=== PATIENT | male | born 1950 | race Two or more races ===

== ENCOUNTER 2023-06-16 10:51 | Outpatient (RCR) | payer MEDICARE, BC, SELFPAY | END 2023-06-16 23:59 | disposition home or self-care (01) | LOC: RPT 10:51 | PROVIDERS: ATTENDING PHYSICIAN Student in an Organized Health Care Education/Training Program; FAMILY PHYSICIAN Internal Medicine Geriatric Medicine | DX: Z47.89 Encounter for other orthopedic aftercare (principal); Z73.6 Limitation of activities due to disability; M25.511 Pain in right shoulder; M62.81 Muscle weakness (generalized) | CPT/HCPCS: 97010; 97110; 97140; 97162 ==

== ENCOUNTER 2023-07-14 10:15 | Outpatient (RCR) | payer MEDICARE, BC, SELFPAY | END 2023-07-14 23:59 | disposition home or self-care (01) | LOC: RPT 10:15 | PROVIDERS: ATTENDING PHYSICIAN Student in an Organized Health Care Education/Training Program; FAMILY PHYSICIAN Internal Medicine Geriatric Medicine | DX: M25.511 Pain in right shoulder (principal); Z98.890 Other specified postprocedural states; Z73.6 Limitation of activities due to disability | CPT/HCPCS: 97010; 97110; 97140 ==

== ENCOUNTER 2023-07-24 09:52 | Outpatient (RCR) | payer MEDICARE, BC, SELFPAY | END 2023-07-24 23:59 | disposition home or self-care (01) | LOC: RPT 09:52 | PROVIDERS: ATTENDING PHYSICIAN Student in an Organized Health Care Education/Training Program; FAMILY PHYSICIAN Internal Medicine Geriatric Medicine | DX: Z47.89 Encounter for other orthopedic aftercare (principal); Z73.6 Limitation of activities due to disability; M25.511 Pain in right shoulder | CPT/HCPCS: 97010; 97110; 97140 ==

== ENCOUNTER 2023-09-07 09:59 | Outpatient (RCR) | payer MEDICARE, BC, SELFPAY | END 2023-09-07 23:59 | disposition home or self-care (01) | LOC: RPT 09:59 | PROVIDERS: ATTENDING PHYSICIAN Student in an Organized Health Care Education/Training Program; FAMILY PHYSICIAN Internal Medicine Geriatric Medicine | DX: Z47.89 Encounter for other orthopedic aftercare (principal); Z98.890 Other specified postprocedural states; Z73.6 Limitation of activities due to disability | CPT/HCPCS: 97010; 97110 ==

== ENCOUNTER 2023-09-29 10:59 | Outpatient (RCR) | payer MEDICARE, BC, SELFPAY | END 2023-09-29 13:55 | disposition home or self-care (01) | LOC: RPT 10:59 | PROVIDERS: ATTENDING PHYSICIAN Student in an Organized Health Care Education/Training Program; FAMILY PHYSICIAN Internal Medicine Geriatric Medicine | DX: Z47.89 Encounter for other orthopedic aftercare (principal); Z98.890 Other specified postprocedural states; Z73.6 Limitation of activities due to disability | CPT/HCPCS: 97010; 97110 ==

== ENCOUNTER 2023-10-12 11:23 | Emergency (ER) | payer MEDICARE, BC, SELFPAY ==
[2023-10-12 11:29] VITALS: BP 123/72
--- NOTE | 2023-10-12 12:08 | ED.GENMED ---
History of Present Illness
General
Chief Complaint: Skin Problem
Source: patient
Time Seen by Provider: 10/12/23 11:52
Travel History
Have you had any contact with someone who has COVID-19?: No
Do you have any symptoms of coronavirus? Fever > 100 degrees, chills, cough, shortness of breath, sore throat, loss of taste or smell, muscle aches, or headache?: No
History of Present Illness
History of Present Illness:
73-year-old male with past medical history of hypertension, diabetes and liver cirrhosis presents to the emergency department for evaluation of suspected adverse reaction to Keflex noting that he was diagnosed with a left-sided face abscess at
[facility] urgent care and was prescribed Keflex and Bactroban. About 3 hours after taking his first dose of Keflex yesterday afternoon started to notice epigastric pain which lasted until 2:30 AM. Patient was unable to follow-up at the
urgent care today and was unable to see his primary care physician and came to the emergency department in hopes of getting his antibiotic changed. He had not previously been on Keflex in the past. Presently denying any other symptoms.
Past History
Past History
ED Past Medical History: HTN, Hypercholesterolemia and NIDDM
ED Past Surgical History: Orthopedic
Social History
Tobacco: Non-smoker
Alcohol: Occasional
Drug: None
Personal:
Living: with family
Review of Systems
Review of Systems
All Other Systems: ROS reviewed and negative except as documented in HPI and ROS
Phy Exam
Physical Exam
Physical Exam:
GENERAL: Alert , in no apparent distress
EYE: conjunctiva clear
Head: Normocephalic atraumatic
NECK: Supple,
ENT: mmm.
LUNGS: no acute respiratory distress
NEUROLOGICAL: Alert and oriented
SKIN: Warm and dry, Small circular area of erythema that is very mildly indurated just above the left eyebrow.
MUSCULOSKELETAL: well perfused.
PSYCH: Normal and appropriate interaction.
Scores
Heart Failure Risk
Heart Failure Risk Score: Not Applicable
Heart Score for Chest Pain Patients
STEMI patient?: Not applicable
Withdrawal Assessment of Alcohol
Withdrawal Assessment Completed?: Not applicable
Course
Vital Signs
Initial and Last Documented VS:
Initial Vital Signs
Temp Pulse Resp BP Pulse Ox
98.1 F 78 18 123/72 98
10/12/23 11:29 10/12/23 11:29 10/12/23 11:29 10/12/23 11:29 10/12/23 11:29
Last Documented Vital Signs
Temp Pulse Resp BP Pulse Ox
98.1 F 78 18 123/72 98
10/12/23 11:29 10/12/23 11:29 10/12/23 11:29 10/12/23 11:29 10/12/23 11:29
MDM/Problems Addressed
Differential Diagnosis Includes:
Medication reaction, GERD, gastritis
MDM/Problems Addressed:
73-year-old male presenting the emergency department for evaluation and requesting medication change after being started on Keflex and Bactroban for suspected abscess yesterday. Patient presently is asymptomatic and in no acute distress. Discussed
risk first benefit of other antibiotics and given that patient states his symptoms seem to be already improving he would like to just continue with the topical medication in hopes to avoid any further adverse reactions. Patient was advised on
return precautions emergency department and is otherwise stable for discharge home.
*Pulse Oximetry
Patient hypoxic: no
*Critical Care Note
Total Time (30-74mins, 75-104mins- exclusive of procedures): Not Applicable
ED Attending Note
-
Portions of this chart may have been created with voice recognition software.� Occasional wrong word or��sound alike� substitutions may have occurred due to the inherent limitations of voice recognition software.
Discharge Plan
Departure
Patient Disposition: Home (Routine Discharge)
Date of Disposition: 10/12/23
Time of Disposition: 12:08
Patient with high blood pressure during this ER visit?: No
Discharge Problem:
Medication side effect
Instructions: Cellulitis (Skin Infection), Adult (DC)
Prescriptions:
No Action
Coq10
100 mg PO DAILY
Crestor:
10 mg PO DAILY
Pepcid:
10 mg PO DAILY
Super B Maxi Complex Caplet
1 tab PO DAILY
Synjardy 5-1,000 mg Tablet
1 tab PO BID
Valsartan
1 tab PO DAILY
Patient Comments:
Vitamin D3:
1,000 unit PO DAILY
Referrals:
Abrahan Veloz MD [Family Provider] -
Interventions
Interventions:
*Risk Screen - Suicide Last Done: 10/12/23 12:00
*General Assessment Last Done: 10/12/23 12:00
*Neglect/Abuse Screening Last Done: 10/12/23 12:00
*Nursing Disposition Last Done: 10/12/23 12:23
Discharge Date and Time
Discharge Date/Time: 10/12/23 12:24
Print Language: [id number]
== END 2023-10-12 12:24 | disposition home or self-care (01) ==
LOC: EMR 11:23
PROVIDERS: EMERGENCY PHYSICIAN Student in an Organized Health Care Education/Training Program; FAMILY PHYSICIAN Internal Medicine Geriatric Medicine
DX: R10.13 Epigastric pain (principal); T36.95XA Adverse effect of unspecified systemic antibiotic, initial encounter; Y92.9 Unspecified place or not applicable; I10 Essential (primary) hypertension; E78.00 Pure hypercholesterolemia, unspecified; E11.9 Type 2 diabetes mellitus without complications; K74.60 Unspecified cirrhosis of liver
CPT/HCPCS: 99282

== ENCOUNTER → 2023-11-13 07:50 | Outpatient (REF) | payer MEDICARE, BC, SELFPAY | LOC: HWRCS 07:50 | PROVIDERS: ATTENDING PHYSICIAN Internal Medicine Geriatric Medicine | DX: I35.0 Nonrheumatic aortic (valve) stenosis (principal) | CPT/HCPCS: 93306 ==

== ENCOUNTER → 2024-03-21 20:37 | Outpatient (REF) | payer MEDICARE, BC, SELFPAY | LOC: MRI 3T 20:37 | PROVIDERS: ATTENDING PHYSICIAN Orthopaedic Surgery; FAMILY PHYSICIAN Internal Medicine Geriatric Medicine | DX: M25.552 Pain in left hip (principal) | CPT/HCPCS: 72148 ==

== ENCOUNTER 2024-04-13 08:56 | Outpatient (RCR) | payer MEDICARE, BC, SELFPAY | END 2024-04-13 23:59 | disposition home or self-care (01) | LOC: RPT 08:56 | PROVIDERS: ATTENDING PHYSICIAN Pain Medicine Interventional Pain Medicine; FAMILY PHYSICIAN Internal Medicine Geriatric Medicine | DX: M54.16 Radiculopathy, lumbar region (principal); Z73.6 Limitation of activities due to disability | CPT/HCPCS: 97110; 97162 ==

== ENCOUNTER 2024-04-29 09:07 | Outpatient (RCR) | payer MEDICARE, BC, SELFPAY | END 2024-05-03 12:12 | disposition home or self-care (01) | LOC: RPT 09:07 | PROVIDERS: ATTENDING PHYSICIAN Pain Medicine Interventional Pain Medicine; FAMILY PHYSICIAN Internal Medicine Geriatric Medicine | DX: M54.16 Radiculopathy, lumbar region (principal); Z73.6 Limitation of activities due to disability | CPT/HCPCS: 97110 ==

== ENCOUNTER → 2024-11-02 09:04 | Outpatient (REF) | payer MEDICARE, BC, SELFPAY | LOC: HWRCS 09:04 | PROVIDERS: ATTENDING PHYSICIAN Internal Medicine Geriatric Medicine | DX: E11.9 Type 2 diabetes mellitus without complications (principal); Z00.00 Encounter for general adult medical examination without abnormal findings; I10 Essential (primary) hypertension; E78.2 Mixed hyperlipidemia; E03.8 Other specified hypothyroidism; R01.1 Cardiac murmur, unspecified; L30.4 Erythema intertrigo; I35.0 Nonrheumatic aortic (valve) stenosis; E55.9 Vitamin D deficiency, unspecified; K21.9 Gastro-esophageal reflux disease without esophagitis | CPT/HCPCS: 93306 ==

== ENCOUNTER → 2024-11-09 13:36 | Outpatient (REF) | payer MEDICARE, BC, SELFPAY | LOC: PAVMRI 13:36 | PROVIDERS: ATTENDING PHYSICIAN Specialist; FAMILY PHYSICIAN Internal Medicine Geriatric Medicine | DX: M25.561 Pain in right knee (principal) | CPT/HCPCS: 73721 ==